=== PATIENT | female | born 1965 | race Caucasian/White ===

== ENCOUNTER → 2017-06-11 | Outpatient (REF) | payer OTHER | LOC: M SFHCLERA 13:04 | PROVIDERS: ATTEND Nurse Practitioner Family | DX: J02.9 Acute pharyngitis, unspecified (principal) ==

== ENCOUNTER → 2020-06-18 | Outpatient (CLI) | payer OTHER ==
--- NOTE | 2020-06-24 08:53 | REP ---
CT CHEST WITHOUT CONTRAST: LOW-DOSE SCREENING HISTORY: Nicotine dependence. COMPARISON CHEST STUDIES: 08/16/2014 and 04/19/2014. 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 There are mild linear fibrotic changes in the bases unchanged from the 04/19/2014 prior study. There is a tiny 3-mm pleural plaque on the right, which is felt to be unchanged. No pulmonary nodule has developed. No mass or infiltrate is seen. There is a granulomatous calcification in the right lower lobe, which is unchanged from the 2014 prior studies. Study is otherwise unremarkable. IMPRESSION: Lung-RADS Category 1 findings. Repeat screening exam suggested in one year. MTDD
== END ==
LOC: M RAD 17:01
PROVIDERS: ATTEND Physician Assistant
DX: F17.218 Nicotine dependence, cigarettes, with other nicotine-induced disorders (principal)

== ENCOUNTER → 2021-06-22 | Outpatient (CLI) | payer OTHER ==
--- NOTE | 2021-06-22 13:47 | REP ---
INDICATION: NICOTINE DEPENDENCE. COMPARISON: 06/18/2020 also low-dose screening CT of the lungs TECHNIQUE: Axial noncontrast images from the thoracic inlet to the upper abdomen using low-dose lung screening technique (LDCT). As per the protocol only lung window images were sent to the read station for interpretation FINDINGS: There is an unchanged 4 mm size nodule in the left lower lobe. The small pleural base nodule in the right lower lobe has resolved. There are incidental calcified granulomas in the right lower lobe. There is mild cylindrical bronchiectasis status quo. There are no new abnormal nodules, masses, or opacities. IMPRESSION: Stable lung rads category [address] low-dose screening CT examination of the lungs. Follow-up as per the revised Fleischner society criteria. <Electronically signed by Jim Griffin > 06/22/21 [id number]
== END ==
LOC: M RAD 13:25
PROVIDERS: ATTEND Physician Assistant
DX: Z12.2 Encounter for screening for malignant neoplasm of respiratory organs (principal); F17.218 Nicotine dependence, cigarettes, with other nicotine-induced disorders; R91.1 Solitary pulmonary nodule; J84.10 Pulmonary fibrosis, unspecified; J47.9 Bronchiectasis, uncomplicated

== ENCOUNTER → 2022-07-02 | Outpatient (CLI) | payer OTHER | LOC: M RAD 10:24 | PROVIDERS: ATTEND Physician Assistant | DX: Z12.2 Encounter for screening for malignant neoplasm of respiratory organs (principal); F17.218 Nicotine dependence, cigarettes, with other nicotine-induced disorders; J84.10 Pulmonary fibrosis, unspecified; R91.8 Other nonspecific abnormal finding of lung field ==

== ENCOUNTER → 2023-07-18 | Outpatient (CLI) | payer OTHER | LOC: M PLAIMG 11:06 | PROVIDERS: ATTEND Physician Assistant | DX: R91.8 Other nonspecific abnormal finding of lung field (principal) ==

== ENCOUNTER → 2024-09-07 | Outpatient (CLI) | payer OTHER | LOC: M RAD 14:45 | PROVIDERS: ATTEND Physician Assistant | DX: F17.218 Nicotine dependence, cigarettes, with other nicotine-induced disorders (principal); R91.8 Other nonspecific abnormal finding of lung field; J47.9 Bronchiectasis, uncomplicated ==